=== PATIENT | male | born 1985 | race Caucasian/White ===

== ENCOUNTER 2019-03-04 10:55 | Emergency (ER) | payer OTHER ==
[2019-03-04 11:12] VITALS: BP 129/89
--- NOTE | 2019-03-04 11:33 | Diagnostic Imaging Report ---
PATIENT MR#: [id number] PATIENT PATIENT NAME: CHRIS ALBRIGHT DATE OF : 1985 REFERRING PHYSICIAN: Marlene Moreno EXAM DATE: 03/04/2019 ACCESSION NUMBER: [id number] EXAM DESCRIPTION: SHOULDER 2 VIEWS OR MORE HISTORY: 33-year-old male status post left AC joint reduction COMPARISON: Radiographs from earlier same day. TECHNIQUE: 2 views of the left shoulder were performed. IMPRESSION: 1. Improved alignment of the left AC joint versus radiographs performed earlier today. 2. Postoperative changes of left distal clavicle resection re-identified. 3. No acute fracture is identified about the left shoulder. Read by: Dr. Rohan Gipson Transcribed by: Transcribed Date: Electronically signed by: Dr. Rohan Gipson Date signed: 03/04/2019 11:33:36 AM
--- NOTE | 2019-03-04 11:40 | Diagnostic Imaging Report ---
PATIENT MR#: [id number] PATIENT PATIENT NAME: CHRIS ALBRIGHT DATE OF : 1985 REFERRING PHYSICIAN: Marlene Moreno EXAM DATE: 03/04/2019 ACCESSION NUMBER: [id number] EXAM DESCRIPTION: SHOULDER 2 VIEWS OR MORE HISTORY: 33-year-old male with left shoulder dislocation while lifting weights, history of previa dis location. COMPARISON: None available. TECHNIQUE: 2 views of the left shoulder were performed. IMPRESSION: 1. There is evidence of resection of the left distal clavicle, and the clavicle currently overlies t he superior portion of the acromion. It is uncertain how much of this overlap is acute versus chronic. 2. No evidence of fracture about the left shoulder. No evidence of glenohumeral dislocation. Read by: Dr. Rohan Gipson Transcribed by: Transcribed Date: Electronically signed by: Dr. Rohan Gipson Date signed: 03/04/2019 11:39:36 AM
--- NOTE | 2019-03-04 11:41 | ED Physician Documentation ---
Shoulder Injury/Pain - HISTORIAN Historian: patient - HPI Stated Complaint: left shoulder dislocation Chief Complaint: Shoulder Injury/ Pain Additional Information: 33 year old male presents from the [facility] with a dislocated left shoulder; states that he was lifting weights approx. 145 pounds and felt the shoulder go out. He states that it happened one year ago. Onset: today Where: other ([facility]) Severity: mild Context: dislocated raising arm (lifting weights) Associated Symptoms: unable to move shoulder - ROS CONST: no problems CVS/RESP: none GI/: denies: nausea, vomiting MS/SKIN/LYMPH: none NEURO: none - PAST HX Past History: Rt handed Immunizations: UTD Allergies/Adverse Reactions: Allergies Allergy/AdvReac Type Severity Reaction Status Date / Time No Known Allergies Allergy Verified 03/04/19 11:02 Home Medications: Ambulatory Orders Medication Instructions Recorded NK 03/04/19 - SOCIAL HX Smoking History: less than 1 pack/day Alcohol Use: none Drug Use: none - FAMILY HX Family History: none - VITAL SIGNS Vital Signs: Vital Signs Temp Pulse Resp BP Pulse Ox 98.0 F 78 20 129/89 98 03/04/19 11:47 03/04/19 11:47 03/04/19 11:47 03/04/19 11:47 03/04/19 11:47 - REVIEWED ASSESSMENT Nursing Assessment Reviewed: Yes Vitals Reviewed: Yes Procedures Joint Reduction Site: shoulder (L) Conscious Sedation: No Reduction Attempts: 1 Post Joint Reduction Film: joint reduced Progress: patient tolerated well; offered sedation but was willing to try without; states that pain is not bad ED Results Lab/Radiology - Radiology Radiology Impressions: HISTORY: 33-year-old male with left shoulder dislocation while lifting weights, history of previa dislocation. COMPARISON: None available. TECHNIQUE: 2 views of the left shoulder were performed. IMPRESSION: 1. There is evidence of resection of the left distal clavicle, and the clavicle currently overlies the superior portion of the acromion. It is uncertain how much of this overlap is acute versus chronic. 2. No evidence of fracture about the left shoulder. No evidence of glenohumeral dislocation. Electronically signed on Mar 04, 2019 11:35:15 AM COMPUTER DESIGNER by: Rohan Gipson HISTORY: 33-year-old male status post left AC joint reduction COMPARISON: Radiographs from earlier same day. TECHNIQUE: 2 views of the left shoulder were performed. IMPRESSION: 1. Improved alignment of the left AC joint versus radiographs performed earlier today. 2. Postoperative changes of left distal clavicle resection re-identified. 3. No acute fracture is identified about the left shoulder. Electronically signed on Mar 04, 2019 11:29:57 AM COMPUTER DESIGNER by: Rohan Gipson - Orders Orders: ED Orders Category Date Time Status SHOULDER 2 VIEWS OR MORE [RAD] Stat Exams 03/04/19 Completed SHOULDER 2 VIEWS OR MORE [RAD] Stat Exams 03/04/19 11:13 Completed Shoulder Injury Physical Exam - Physical Exam General Appearance: no acute distress, alert, mild distress Shoulder: AC drop-off, limited ROM, held in adduction Upper Extremity: no injury below shoulder Neuro: sensation nml, motor nml Vascular: no vascular compromise, motor nml, sensation nml Skin: warm/dry, normal color Head/ENT: nml inspection, pharynx nml Respiratory: breath sounds nml, heart sounds nml CVS: heart sounds normal, equal pulses, no murmur Abdomen: soft, normal bowel sounds Discharge Clincal Impression: Recurrent dislocation, left shoulder Referrals: Jorge Luis Gonzalez III, MD [Primary Care Provider] - 2 Days Additional Instructions: Wear sling for 1 week Rest your left arm until follow up- no weight lifting Follow up with PCP for re-evaluation Condition: Good Disposition: 01 HOME, SELF-CARE Decision to Admit: NO Decision Time: 14:46
== END 2019-03-04 11:48 | disposition home or self-care (01) ==
LOC: ED 10:55
DX: M24.412 Recurrent dislocation, left shoulder (principal)
CPT/HCPCS: 23650; 99282; 99283